=== PATIENT | male | born 1990 | race African-American/Black ===

== ENCOUNTER 2016-12-04 18:37 | Emergency (ER) | payer OTHER ==
--- NOTE | 2016-12-04 19:16 | EDDOCDS ---
Nurse's Notes [facility] Name: Mikey King Age: 25 yrs Sex: Male : 1990 Arrival Date: 12/04/2016 Time: 18:37 Bed TR3 Private MD: Other - Complete Info On Cds Diagnosis: Pain in hip Presentation: 12/04 18:43 Presenting complaint: Patient states: that he was told that he strained his L hip ms18 flexor a few months ago. Pt states that the pain has gotten worse. Adult Sepsis Screening: The patient does not have new or worsening altered mentation. Patient's respiratory rate is less than 22. Systolic blood pressure is greater than 100. Patient has a qSOFA score of 0- Negative Sepsis Screen. Suicide/Homicide risk assessment- the patient denies having any suicidal and/or homicidal ideations and does not present with any other emotional, behavioral or mental health complaints. 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 Transition of care: patient was not received from another setting of care. 18:43 Acuity: HAYDEE Level 4 ms18 18:43 Method Of Arrival: Walkin/Carried/Asstd ms18 Triage Assessment: 18:45 General: Appears in no apparent distress, comfortable, Behavior is appropriate for age, ms18 cooperative, pleasant. Pain: Location: left hip Pain currently is 7 out of 10 on a pain scale. Pain: Aggravated by increased activity. HIV screening NA for this visit Offered previously. Neurological: No deficits noted. Respiratory: Airway is patent. Derm: Skin is pink, warm & dry. normal. Historical: - Allergies: SULFA (SULFONAMIDES); - Home Meds: 1. none - PMHx: none; - PSHx: none; - Social history: Smoking status: Patient states was never smoker of tobacco. No barriers to communication noted, The patient speaks fluent Irish. - Family history: Not pertinent. - : The pt / caregiver states he / she is not on anticoagulants. Home medication list is obtained from the patient. - Exposure Risk Screening:: None identified. Screenin:13 Screening information is obtained from the patient. Fall risk: No risks identified. jmb Assistance ADL's: requires no assistance with activities of daily living. Abuse/DV Screen: The patient / caregiver reports he/she is: not in a situation that causes fear, pain or injury. Nutritional screening: No deficits noted. Advance Directives: Currently, there is no health care proxy. There is no active DNR order. There is no living will. There is no Power of Analytical Manager. home support is adequate. Assessment: 19:13 General: Patient instructed on discharge instructions. Patient asked if there were any jmb questions regarding discharge, patient stated no. Patient signed discharge instructions. Patient discharged in stable condition.. Vital Signs: 18:39 BP 114 / 68; Pulse 69; Resp 18 S; Temp 97.3(O); Pulse Ox 98% on R/A; Weight 71.67 kg gr2 (R); Height 5 ft. 9 in. (175.26 cm) (R); Pain 7/10; 18:39 Body Mass Index 23.33 (71.67 kg, 175.26 cm) gr2 Vitals: 18:39 Log In Time: December 04, 2016 at 18:39. gr2 ED Course: 18:39 Patient visited by Keke Smith. gr2 18:39 Other - Complete Info On Cds is Private Physician. gr2 18:39 Patient moved to Waiting gr2 18:42 Patient visited by Keke Smith. gr2 18:43 Patient moved to Pre RCE gr2 18:44 Triage Initiated ms18 18:49 Patient moved to Triage 2 mdr 19:02 Howie Bhandari PA is PHCP. btw 19:02 Chuck Hernandez DO is Attending Physician. btw 19:02 Patient visited by Howie Bhandari PA. btw 19:06 [facility]. btw 19:13 The patient / caregiver is instructed regarding the plan of care and ED course. jmb 19:13 No IV's were initiated during this patient's visit. No procedures done that require jmb assistance. 19:14 Patient moved to TR3 mdr Order Results: There are currently no results for this order. Outcome: 19:07 Discharge ordered by Provider. btw 19:13 Discharge Assessment: Patient awake, alert and oriented x 3. No cognitive and/or jmb functional deficits noted. Patient verbalized understanding of disposition instructions. Patient awake and alert. obeys commands, Oriented to person, place and time. Patient verbalized understanding of disposition instructions. Patient has no functional deficits. patient administered narcotics - no. The following High Risk Discharge criteria are identified: None. Discharged to home ambulatory, with significant other. Condition: stable Condition: improved. Discharge instructions given to patient, Instructed on discharge instructions, follow up and referral plans. medication usage, Demonstrated understanding of instructions, medications, Pt was receptive of discharge instructions/ teaching. Prescriptions given X 1, Work note provided to patient. No special radiology studies were completed. Property sent home with patient. 19:15 Patient left the ED. mia Signatures: Howie Bhandari PA PA btw Raymond, [place] gr2 Jules Cummings,RN RN Lakisha Gardner,RN RN ms18 Brad Berry, EVELINE BUILDING MAINTENANCE SUPERVISOR mdr MTDD
--- NOTE | 2016-12-04 19:16 | EDDOCDS ---
Physician Documentation [facility] Name: Mikey King Age: 25 yrs Sex: Male : 1990 Arrival Date: 12/04/2016 Time: 18:37 Bed TR3 Private MD: Other - Complete Info On Cds Disposition: 12/04/16 19:07 Discharged to Home/Self Care. Impression: Pain in hip. - Condition is Stable. - Discharge Instructions: Chronic Pain. - Prescriptions for Diclofenac Sodium 75 mg Oral Tablet, Delayed Release (E.C.) - take 1 tablet by ORAL route 2 times per day; 30 tablet. - Medication Reconciliation, Local Pharmacy Hours form. - Follow up: Nikki Gonzalez [facility]; When: Call to arrange an appointment; Reason: Further diagnostic work-up, Recheck today's complaints, Continuance of care. - Problem is chronic. - Symptoms are unchanged. Historical: - Allergies: SULFA (SULFONAMIDES); - Home Meds: 1. none - PMHx: none; - PSHx: none; - Social history: Smoking status: Patient states was never smoker of tobacco. No barriers to communication noted, The patient speaks fluent [place] Leone[place]. - Family history: Not pertinent. - : The pt / caregiver states he / she is not on anticoagulants. Home medication list is obtained from the patient. - Exposure Risk Screening:: None identified. Vital Signs: 12/04 18:39 BP 114 / 68; Pulse 69; Resp 18 S; Temp 97.3(O); Pulse Ox 98% on R/A; Weight 71.67 kg / gr2 158.01 lbs (R); Height 5 ft. 9 in. (175.26 cm) (R); Pain 7/10; 18:39 Body Mass Index 23.33 (71.67 kg, 175.26 cm) gr2 Signatures: Howie Bhandari PA PA btw Becker, JoshuaRN RN Lakisha Gardner RN RN ms18 MTDD
--- NOTE | 2016-12-06 20:17 | EDDOCDS ---
Nurse's Notes [facility] Name: Mikey King Age: 25 yrs Sex: Male : 1990 Arrival Date: 12/04/2016 Time: 18:37 Bed TR3 Private MD: Other - Complete Info On Cds Diagnosis: Pain in hip Presentation: 12/04 18:43 Presenting complaint: Patient states: that he was told that he strained his L hip ms18 flexor a few months ago. Pt states that the pain has gotten worse. Adult Sepsis Screening: The patient does not have new or worsening altered mentation. Patient's respiratory rate is less than 22. Systolic blood pressure is greater than 100. Patient has a qSOFA score of 0- Negative Sepsis Screen. Suicide/Homicide risk assessment- the patient denies having any suicidal and/or homicidal ideations and does not present with any other emotional, behavioral or mental health complaints. 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 Transition of care: patient was not received from another setting of care. 18:43 Acuity: HAYDEE Level 4 ms18 18:43 Method Of Arrival: Walkin/Carried/Asstd ms18 Triage Assessment: 18:45 General: Appears in no apparent distress, comfortable, Behavior is appropriate for age, ms18 cooperative, pleasant. Pain: Location: left hip Pain currently is 7 out of 10 on a pain scale. Pain: Aggravated by increased activity. HIV screening NA for this visit Offered previously. Neurological: No deficits noted. Respiratory: Airway is patent. Derm: Skin is pink, warm & dry. normal. Historical: - Allergies: SULFA (SULFONAMIDES); - Home Meds: 1. none - PMHx: none; - PSHx: none; - Social history: Smoking status: Patient states was never smoker of tobacco. No barriers to communication noted, The patient speaks fluent Amharic. - Family history: Not pertinent. - : The pt / caregiver states he / she is not on anticoagulants. Home medication list is obtained from the patient. - Exposure Risk Screening:: None identified. Screenin:13 Screening information is obtained from the patient. Fall risk: No risks identified. jmb Assistance ADL's: requires no assistance with activities of daily living. Abuse/DV Screen: The patient / caregiver reports he/she is: not in a situation that causes fear, pain or injury. Nutritional screening: No deficits noted. Advance Directives: Currently, there is no health care proxy. There is no active DNR order. There is no living will. There is no Power of Potline Monitor. home support is adequate. Assessment: 19:13 General: Patient instructed on discharge instructions. Patient asked if there were any jmb questions regarding discharge, patient stated no. Patient signed discharge instructions. Patient discharged in stable condition.. Vital Signs: 18:39 BP 114 / 68; Pulse 69; Resp 18 S; Temp 97.3(O); Pulse Ox 98% on R/A; Weight 71.67 kg gr2 (R); Height 5 ft. 9 in. (175.26 cm) (R); Pain 7/10; 18:39 Body Mass Index 23.33 (71.67 kg, 175.26 cm) gr2 Vitals: 18:39 Log In Time: December 04, 2016 at 18:39. gr2 ED Course: 18:39 Patient visited by Keke Smith. gr2 18:39 Other - Complete Info On Cds is Private Physician. gr2 18:39 Patient moved to Waiting gr2 18:42 Patient visited by Keke Smith. gr2 18:43 Patient moved to Pre RCE gr2 18:44 Triage Initiated ms18 18:49 Patient moved to Triage 2 mdr 19:02 Howie Bhandari PA is PHCP. btw 19:02 Chuck Hernandez DO is Attending Physician. btw 19:02 Patient visited by Howie Bhandari PA. btw 19:06 [facility] is Referral Physician. btw 19:13 The patient / caregiver is instructed regarding the plan of care and ED course. jmb 19:13 No IV's were initiated during this patient's visit. No procedures done that require jmb assistance. 19:14 Patient moved to TR3 mdr 19:18 [facility] Payment Agreement was scanned into [employer] and attached to record. gjb 19:21 Patient name changed from Mikey\S\\S\Fernando\S\ to Mikey\S\ \S\Fernando. EDMS 12/05 13:00 T-Sheet-- Draft Copy was scanned into [employer] and attached to record. gb Order Results: There are currently no results for this order. Outcome: 12/04 19:07 Discharge ordered by Provider. btw 19:13 Discharge Assessment: Patient awake, alert and oriented x 3. No cognitive and/or jmb functional deficits noted. Patient verbalized understanding of disposition instructions. Patient awake and alert. obeys commands, Oriented to person, place and time. Patient verbalized understanding of disposition instructions. Patient has no functional deficits. patient administered narcotics - no. The following High Risk Discharge criteria are identified: None. Discharged to home ambulatory, with significant other. Condition: stable Condition: improved. Discharge instructions given to patient, Instructed on discharge instructions, follow up and referral plans. medication usage, Demonstrated understanding of instructions, medications, Pt was receptive of discharge instructions/ teaching. Prescriptions given X 1, Work note provided to patient. No special radiology studies were completed. Property sent home with patient. 19:15 Patient left the ED. mia Signatures: Dispatcher [employer] EDMS Jamilah Roberson, Reg Reg gb Howie Bhandari PA PA btw Keke Smith gr2 Jules Cummings,RN RN Lakisha Gardner RN RN ms18 Brad Berry, FACTORY LAY OUT ENGINEER FACTORY LAY OUT ENGINEER Amirah Salazar Chart Complete JACKIE
--- NOTE | 2016-12-06 20:17 | EDDOCDS ---
Physician Documentation [facility] Name: Mikey King Age: 25 yrs Sex: Male : 1990 Arrival Date: 12/04/2016 Time: 18:37 Bed TR3 Private MD: Other - Complete Info On Cds Disposition: 12/04/16 19:07 Discharged to Home/Self Care. Impression: Pain in hip. - Condition is Stable. - Discharge Instructions: Chronic Pain. - Prescriptions for Diclofenac Sodium 75 mg Oral Tablet, Delayed Release (E.C.) - take 1 tablet by ORAL route 2 times per day; 30 tablet. - Medication Reconciliation, Local Pharmacy Hours form. - Follow up: Nikki Gonzalez [facility]; When: Call to arrange an appointment; Reason: Further diagnostic work-up, Recheck today's complaints, Continuance of care. - Problem is chronic. - Symptoms are unchanged. Historical: - Allergies: SULFA (SULFONAMIDES); - Home Meds: 1. none - PMHx: none; - PSHx: none; - Social history: Smoking status: Patient states was never smoker of tobacco. No barriers to communication noted, The patient speaks fluent Citizen Of [place]. - Family history: Not pertinent. - : The pt / caregiver states he / she is not on anticoagulants. Home medication list is obtained from the patient. - Exposure Risk Screening:: None identified. Vital Signs: 12/04 18:39 BP 114 / 68; Pulse 69; Resp 18 S; Temp 97.3(O); Pulse Ox 98% on R/A; Weight 71.67 kg / gr2 158.01 lbs (R); Height 5 ft. 9 in. (175.26 cm) (R); Pain 7/10; 18:39 Body Mass Index 23.33 (71.67 kg, 175.26 cm) gr2 MDM: 19:18 [facility] Payment Agreement was scanned into [employer] and attached to record. sang 19:18 Financial registration complete. sang 12/05 13:00 T-Sheet-- Draft Copy was scanned into [employer] and attached to record. gb Signatures: Jamilah Roberson, Reg Reg gb Howie Bhandari PA PA btw Becker, JoshuaRN RN Lakisha Gardner RN RN ms18 Amirah Hall The chart was reviewed and I authenticate all verbal orders and agree with the evaluation and treatment provided.Attachments: 12/04 19:18 [facility] Payment Agreement gjb 12/05 13:00 T-Sheet-- Draft Copy gb Chart Complete MTDD
--- NOTE | 2016-12-06 20:18 | EDDOCDS ---
Physician Documentation [facility] Name: Mikey King Age: 25 yrs Sex: Male : 1990 Arrival Date: 12/04/2016 Time: 18:37 Bed TR3 Private MD: Other - Complete Info On Cds Disposition: 12/04/16 19:07 Discharged to Home/Self Care. Impression: Pain in hip. - Condition is Stable. - Discharge Instructions: Chronic Pain. - Prescriptions for Diclofenac Sodium 75 mg Oral Tablet, Delayed Release (E.C.) - take 1 tablet by ORAL route 2 times per day; 30 tablet. - Medication Reconciliation, Local Pharmacy Hours form. - Follow up: Nikki Gonzalez [facility]; When: Call to arrange an appointment; Reason: Further diagnostic work-up, Recheck today's complaints, Continuance of care. - Problem is chronic. - Symptoms are unchanged. Historical: - Allergies: SULFA (SULFONAMIDES); - Home Meds: 1. none - PMHx: none; - PSHx: none; - Social history: Smoking status: Patient states was never smoker of tobacco. No barriers to communication noted, The patient speaks fluent Maltese. - Family history: Not pertinent. - : The pt / caregiver states he / she is not on anticoagulants. Home medication list is obtained from the patient. - Exposure Risk Screening:: None identified. Vital Signs: 12/04 18:39 BP 114 / 68; Pulse 69; Resp 18 S; Temp 97.3(O); Pulse Ox 98% on R/A; Weight 71.67 kg / gr2 158.01 lbs (R); Height 5 ft. 9 in. (175.26 cm) (R); Pain 7/10; 18:39 Body Mass Index 23.33 (71.67 kg, 175.26 cm) gr2 MDM: 19:18 [facility] Payment Agreement was scanned into [employer] and attached to record. sang 19:18 Financial registration complete. sang 12/05 13:00 T-Sheet-- Draft Copy was scanned into [employer] and attached to record. gb Signatures: Jamilah Roberson, Reg Reg gb Howie Bhandari PA PA btw Becker, JoshuaRN RN Lakisha Gardner RN RN ms18 Amirah Hall The chart was reviewed and I authenticate all verbal orders and agree with the evaluation and treatment provided.Attachments: 12/04 19:18 [facility] Payment Agreement gjb 12/05 13:00 T-Sheet-- Draft Copy gb Chart Complete MTDD
== END 2016-12-04 19:15 | disposition home or self-care (01) ==
LOC: M ED 18:37
DX: G89.29 Other chronic pain (principal); M25.551 Pain in right hip; M25.552 Pain in left hip; Z88.2 Allergy status to sulfonamides

== ENCOUNTER 2017-12-22 17:16 | Emergency (ER) | payer OTHER ==
[2017-12-22 19:53] LABS: BASO % 0.2 % (0.0-1.0); EOS # 0.2 10^3/uL (0.0-0.50); EOS % 1.8 % (0.0-3.0); HEMATOCRIT 48.4 % (42.0-52.0); HEMOGLOBIN 16.6 g/dl (14.0-18.0); IMMATURE GRANULOCYTE % 0.2 % (0-3.0); LYMPH # 0.5 10^3/uL (1.5-6.5); MEAN CORPUSCULAR HEMOGLOBIN 30.3 pg (27.0-33.0); MEAN CORPUSCULAR HGB CONC 34.3 g/dl (32.0-36.5); MEAN CORPUSCULAR VOLUME 88.3 fl (80.0-96.0); MONO # 0.9 10^3/uL (0.0-0.8); MONO % 7.9 % (0.0-5.0); NEUTROPHILS # 9.2 10^3/uL (1.8-7.7); NEUTROPHILS % 84.9 % (36.0-66.0); PLATELET COUNT, AUTOMATED 309 10^3/uL (150-450); RED BLOOD COUNT 5.48 10^6/uL (4.30-6.10); RED CELL DISTRIBUTION WIDTH 11.9 % (11.5-14.5); WHITE BLOOD COUNT 10.8 10^3/uL (4.0-10.0)
[2017-12-22] MEDS: ONDANSETRON 4MG/2ML VIAL (J2405) IV (19:57)
[2017-12-22] MEDS: MORPHINE 4 MG/ML 1ML VIAL (J2270) IV (19:57)
[2017-12-22] MEDS: NS 1,000 ML IV (19:57)
[2017-12-22] MEDS ORDERED: ISOVUE-370 76% 100ML VIAL (Q9967) As Ordered (20:17)
[2017-12-22 20:20] LABS: ALBUMIN 4.8 GM/DL (3.2-5.2); ALKALINE PHOSPHATASE 114 U/L (45-117); ALT/SGPT 29 U/L (12-78); ANION GAP 7 MEQ/L (8-16); AST/SGOT 22 U/L (7-37); BILIRUBIN,DIRECT 0.2 MG/DL (0.0-0.2); BILIRUBIN,TOTAL 0.9 MG/DL (0.2-1.0); BLOOD UREA NITROGEN 21 MG/DL (7-18); CALCIUM LEVEL 9.2 MG/DL (8.5-10.1); CARBON DIOXIDE LEVEL 27 MEQ/L (21-32); CHLORIDE LEVEL 104 MEQ/L (98-107); CREATININE FOR GFR 1.38 MG/DL (0.70-1.30); GLOMERULAR FILTRATION RATE > 60.0 (>60); GLUCOSE, FASTING 107 MG/DL (70-100); LIPASE 103 U/L (73-393); POTASSIUM SERUM 4.5 MEQ/L (3.5-5.1); SODIUM LEVEL 138 MEQ/L (136-145); TOTAL PROTEIN 8.8 GM/DL (6.4-8.2)
[2017-12-22 21:19] LABS: KETONE, URINE AUTO RFX TRACE mg/dL (NEGATIVE); LEUKOCYTE ESTERASE UR AUTO RFX NEGATIVE (NEGATIVE); MUCUS, URINE RFX SMALL (NEGATIVE); NITRITE, URINE AUTO RFX NEGATIVE (NEGATIVE); RBC, URINE AUTO RFX 2 /HPF (0-3); SQUAM EPITHELIAL CELL UR AURFX 0 /HPF (0-6); WBC, URINE AUTO RFX 0 /HPF (0-3)
[2017-12-22 21:20] LABS: SPECIFIC GRAVITY UR AUTO RFX >1.060 (1.002-1.035)
== END 2017-12-22 21:43 | disposition home or self-care (01) ==
LOC: M ED 17:16
DX: E86.0 Dehydration (principal); R10.33 Periumbilical pain; R10.32 Left lower quadrant pain; R11.10 Vomiting, unspecified; Z88.2 Allergy status to sulfonamides
CPT/HCPCS: J2270

== ENCOUNTER 2018-02-07 23:06 | Emergency (ER) | payer OTHER | END 2018-02-07 23:34 | disposition left against medical advice (07) | LOC: M ED 23:34 | DX: Z53.21 Procedure and treatment not carried out due to patient leaving prior to being seen by health care provider (principal) ==